=== PATIENT | male | born 1995 | race American Indian/Alaskan Native ===

== ENCOUNTER 2017-06-21 22:09 | Emergency (ER) | payer OTHER ==
[2017-06-21 22:23] VITALS: BP 99/68; PULSE 102; RESP 14; TEMP 99; O2SAT 96
[2017-06-21 22:37] VITALS: BMI 20.7
[2017-06-21] MEDS ORDERED: Amoxicillin-Clav 875-125 mg Tab PO STA (22:49)
[2017-06-21] MEDS ORDERED: TDAP Vaccine 0.5 mL Syr IM ONE (22:49)
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
== END 2017-06-21 23:41 | disposition home or self-care (01) ==
LOC: MERGE 22:09 → ED 22:09
DX: S61.451A Open bite of right hand, initial encounter (principal); S61.452A Open bite of left hand, initial encounter; Y04.1XXA Assault by human bite, initial encounter; Y92.9 Unspecified place or not applicable; M54.9 Dorsalgia, unspecified; Z23 Encounter for immunization

== ENCOUNTER 2017-08-09 13:54 | Emergency (ER) | payer BC, OTHER ==
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
[2017-08-09 14:43] LABS: BASO # 0.02 K/mm3 (0.0-2.0); BASO % 0.4 % (0.0-3.0); EOS % 0.2 % (1.5-5.0); GRAN # 1.41 (1.4-6.5); GRAN % 31.6 % (50.0-68.0); HEMOGLOBIN 14.8 g/dL (14.0-18.0); LYMPH # 2.6 (1.2-3.4); LYMPH % 57.7 % (22.0-35.0); MEAN CELL VOLUME 90.8 fl (80.0-105.0); MEAN CORPUSCULAR HEMOGLOBIN 31.8 pg (25.0-35.0); MEAN CORPUSCULAR HGB CONC 35.1 g/dl (31.0-37.0); MEAN PLATELET VOLUME 11.1 fl (7.0-11.0); MONO # 0.5 (0.1-0.6); MONO % 10.1 % (1.0-6.0); RBC 4.65 10^6/uL (3.5-6.1); RED CELL DISTRIBUTION WIDTH 12.5 % (11.5-14.5); WHITE BLOOD COUNT 4.5 10^3/ul (4.5-11.0)
[2017-08-09 14:59] LABS: ALB/GLOB RATIO 1.4 (1.1-1.8); ALBUMIN 4.8 g/dL (3.0-4.8); ALT/SGPT 41 U/L (7-56); AST/SGOT 47 U/L (17-59); BLOOD UREA NITROGEN 11 mg/dL (7-21); CALCIUM 9.6 mg/dL (8.4-10.5); GFR AFRICAN-AMERICAN > 60; GFR NON-AFRICAN AMERICAN > 60
[2017-08-09 15:08] LABS: TROPONIN I < 0.01 ng/mL
[2017-08-09 15:27] VITALS: O2SAT 100
[2017-08-09 15:44] LABS: CK-MB 1.9 ng/mL (0.0-3.6)
[2017-08-09 15:45] LABS: MAGNESIUM 1.9 mg/dL (1.7-2.2)
--- NOTE | 2017-08-09 15:57 | RAD ---
HISTORY: chest pain COMPARISON: No prior. TECHNIQUE: Chest PA and lateral FINDINGS: LUNGS: No active pulmonary disease. PLEURA: No significant pleural effusion identified. No pneumothorax apparent. CARDIOVASCULAR: Normal. OSSEOUS STRUCTURES: No significant abnormalities. VISUALIZED UPPER ABDOMEN: Normal. OTHER FINDINGS: None. IMPRESSION: No active disease.
[2017-08-09 16:12] VITALS: TEMP 98.3
[2017-08-09 16:52] VITALS: BP 120/68; PULSE 88; RESP 16
--- NOTE | 2017-08-10 10:07 | CARD ---
APPROVED REPORT EKG Measurement Heart [id number] NM [id number] <Conclusion> Normal sinus rhythm RSR' or QR pattern in V1 suggests right ventricular conduction delay Normal ECG
== END 2017-08-09 16:12 | disposition home or self-care (01) ==
LOC: ED 13:54
DX: R94.31 Abnormal electrocardiogram [ECG] [EKG] (principal); T14.8XXA Other injury of unspecified body region, initial encounter; X50.9XXA Other and unspecified overexertion or strenuous movements or postures, initial encounter
CPT/HCPCS: 71046; 80053; 82550; 82553; 83615; 83735; 84100; 84484; 85025; 85378; 93005; 96372; 99284; J1885

== ENCOUNTER 2018-02-19 19:58 | Emergency (ER) | payer BC ==
[2018-02-19 20:21] VITALS: RESP 18; TEMP 98.4; BMI 22.3
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
[2018-02-19 21:26] VITALS: BP 135/82; PULSE 75; O2SAT 100
--- NOTE | 2018-02-20 09:29 | RAD ---
PROCEDURE: Right Hand Radiographs. HISTORY: 3rd finger dislocation COMPARISON: None. FINDINGS: BONES: Normal. No fracture. JOINTS: Normal. No osteoarthritic changes. SOFT TISSUES: Normal. OTHER FINDINGS: None. IMPRESSION: Normal right hand radiographs.
== END 2018-02-19 21:23 | disposition home or self-care (01) ==
LOC: ED 19:58
DX: S63.252A Unspecified dislocation of right middle finger, initial encounter (principal); X50.0XXA Overexertion from strenuous movement or load, initial encounter; Y92.89 Other specified places as the place of occurrence of the external cause; Y99.0 Civilian activity done for income or pay

== ENCOUNTER 2018-06-23 19:53 | Emergency (ER) | payer BC ==
[2018-06-23 20:18] VITALS: TEMP 98.7
[2018-06-23] MEDS ORDERED: Sodium Chloride 0.9% 1,000 ML IV STA (20:29)
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
[2018-06-23 21:19] LABS: HEMOGLOBIN 14.5 g/dL (14.0-18.0); MEAN PLATELET VOLUME 10.5 fl (7.0-11.0); RBC 4.68 10^6/uL (3.5-6.1); RED CELL DISTRIBUTION WIDTH 12.7 % (11.5-14.5); WHITE BLOOD COUNT 5.1 10^3/uL (4.5-11.0)
[2018-06-23 21:29] LABS: ALB/GLOB RATIO 1.4 (1.1-1.8); ALBUMIN 4.4 g/dL (3.0-4.8); ALT/SGPT 31 U/L (7-56); AST/SGOT 30 U/L (17-59); BLOOD UREA NITROGEN 13 mg/dL (7-21); CALCIUM 9.3 mg/dL (8.4-10.5); GFR NON-AFRICAN AMERICAN > 60; LIPASE 163 U/L (23-300)
[2018-06-23 23:22] VITALS: BP 117/78; PULSE 68; RESP 18; O2SAT 100
== END 2018-06-23 22:55 | disposition home or self-care (01) ==
LOC: ED 19:53
DX: K52.9 Noninfective gastroenteritis and colitis, unspecified (principal)
CPT/HCPCS: 80053; 83690; 85027; 96361; 96374; 96375; 99284; J1885; J2405; J7030

== ENCOUNTER 2018-08-05 11:22 | Emergency (ER) | payer BC ==
[2018-08-05 11:55] VITALS: BMI 21.5
[2018-08-05 11:56] VITALS: RESP 18; TEMP 98.7
[2018-08-05] MEDS ORDERED: Lidocaine 2% Jelly (Uro-Jet) TOP ONE (12:15)
--- NOTE | 2018-08-05 13:25 | ED PDOC ---
Arrival/HPI - General Chief Complaint: GI Problem Historian: Patient - History of Present Illness Narrative History of Present Illness (Text): 08/05/18 12:12 22 year old male, whose past medical history includes hemorrhoid at age 14, who presents to the ED complaining of rectal pain related to a hemorrhoid that has been developing for approximately 1 month. 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 Patient states he has had a hemorrhoid in the past when he was 14 years old, noting it went away on its own. Patient states it is worse this time. Patient notes light pink bleeding, diarrhea and overall weakness. Patient denies any constipation, abdominal pain, nausea, vomiting, bloody stools, or any other complaints. Time/Duration: Other (Patient notes hemorrhoid has been developing for past month) Symptom Onset: Gradual Symptom Course: Unchanged Activities at Onset: Light Past Medical History - Provider Review Nursing Documentation Reviewed: Yes - Infectious Disease Hx of Infectious Diseases: None - Cardiac Hx Cardiac Disorders: No - Pulmonary Hx Respiratory Disorders: No Hx Asthma: No - Neurological HX Cerebrovascular Accident: Yes (age 12) - HEENT Hx HEENT Disorder: No - Renal Hx Renal Disorder: No - Endocrine/Metabolic Hx Endocrine Disorders: No - Hematological/Oncological Hx Blood Disorders: No - Integumentary Hx Dermatological Disorder: No - Musculoskeletal/Rheumatological Hx Musculoskeletal Disorders: No - Gastrointestinal Hx Gastrointestinal Disorders: No - Genitourinary/Gynecological Hx Genitourinary Disorders: No - Psychiatric Hx Psychophysiologic Disorder: No Hx Anxiety: Yes Hx Depression: Yes Hx Substance Use: Yes (marijuana) - Surgical History Other/Comment: hernia - Anesthesia Hx Anesthesia: Yes Hx Anesthesia Reactions: No Hx Malignant Hyperthermia: No Family/Social History - Physician Review Nursing Documentation Reviewed: Yes Family/Social History: No Known Family HX Smoking Status: Never Smoked Hx Alcohol Use: Yes Hx Substance Use: Yes (marijuana) Allergies/Home Meds Allergies/Adverse Reactions: Allergies melon Allergy (Verified 06/23/18 20:14) ITCHING Causes throat itching Review of Systems - Physician Review All systems were reviewed & negative as marked: Yes - Review of Systems Constitutional: Fatigue. absent: Normal Gastrointestinal: Diarrhea, Other (Pt notes light pink rectal bleeding). absent: Normal, Abdominal Pain, Constipation, Nausea, Vomiting, Hematochezia Physical Exam Vital Signs Reviewed: Yes Vital Signs Temp Pulse Resp BP Pulse Ox 08/05/18 11:56 98.7 F 71 18 121/78 98 Temperature: Afebrile Blood Pressure: Normal Pulse: Regular Respiratory Rate: Normal Appearance: Positive for: Well-Appearing, Non-Toxic, Comfortable Pain Distress: Mild Mental Status: Positive for: Alert and Oriented X 3 Medical Decision Making ED Course and Treatment: 08/05/18 12:12 Impression: 22 year old male presents to the ED complaining of rectal pain related to a hemorrhoid that has been developing for approximately 1 month. Differential Diagnoses Include But Are Not Limited To: --External Thrombosed Hemrrhoids Plan: -- Viscous Lidocaine Gel --Surgery Consult Prior visits: Patient was last seen here in the ED on 06/23/18 complaining of occassional nausea, vomiting, diarrhea, with occasional abdominal cramps. Pt was discharged home in good condition, directed to follow up with PMD, and prescribed Zofran ODT 4mg PO. Progress notes: 08/05/18 13:50 Surgery resident evaluated patient and states he would like to discuss with attending regarding plan of care for patient. He will follow up once he receives a response. 08/05/18 15:05 Spoke to surgery resident whom after discussion with Dr. Meek(general surgery) states patient may go home on Anusol, perform Sitz Baths & follow up with attending on outpatient basis. Updated plan communicated with patient who demonstrates acknowledgement. He is stable for discharge. - Medication Orders Current Medication Orders: Discontinued Medications Lidocaine HCl (Xylocaine 2% (Uro-Jet)) 20 ea TOP ONCE ONE Stop: 08/05/18 12:16 - Scribe Statement The provider has reviewed the documentation as recorded by the Scribe Geraldine Duffy All medical record entries made by the Scribe were at my direction and personally dictated by me. I have reviewed the chart and agree that the record accurately reflects my personal performance of the history, physical exam, medical decision making, and the department course for this patient. I have also personally directed, reviewed, and agree with the discharge instructions and disposition. Disposition/Present on Arrival - Present on Arrival Any Indicators Present on Arrival: No History of DVT/PE: No History of Uncontrolled Diabetes: No Urinary Catheter: No History of Decub. Ulcer: No History Surgical Site Infection Following: None - Disposition Have Diagnosis and Disposition been Completed?: Yes Diagnosis: External hemorrhoid Disposition Time: 15:06 Patient Plan: Discharge Patient Problems: Current Active Problems Problem Status Onset External hemorrhoid Acute Condition: STABLE Discharge Instructions (ExitCare): Hemorrhoids (DC) Print Language: THAI Additional Instructions: All medical record entries made by the Scribe were at my direction and personally dictated by me. I have reviewed the chart and agree that the record accurately reflects my personal performance of the history, physical exam, medical decision making, and the department course for this patient. I have also personally directed, reviewed, and agree with the discharge instructions and disposition. Please use Sitz Baths, epsom salts and local anesthetic cream for symptoms Please follow up with surgeon in 1-2 days Prescriptions: Hydrocortisone 2.5% (Rectal) [Anusol-HC] 30 applic SC BID #2 tube Phenylephrine HCl/Witch Tracey [Preparation H Cooling Gel] 51 gm TP Q6H #1 gel..gram. Referrals: Chilo Bhardwaj MD [Medical Doctor] - Follow up with primary Gris De Leon MD [Medical Doctor] - Follow up with primary [facility] [Outside] - Follow up with primary Forms: [facility] ([place]), WORK NOTE
--- NOTE | 2018-08-05 14:31 | CP.PCM.CON ---
History of Present Illness - History of Present Illness History of Present Illness: Surgery: Dr. Bhardwaj CC: Hemorrhoid HPI: 22M w. pmh of hemorrhoids presents to ED with worsening rectal pain x 1 month. Pt states that the pain is sharp. Pain is not made worse with BM. He denies any lisa bleeding, but states that he occasionally has light streaks on toilet paper when wiping. He denies constipation. He states that he has had intermittent diarrhea for the past month and has been occasionally feeling fatigued. PMH: Hemorrhoid at 14 y/o, resolved on own PSH: Left inguinal hernia repair (16 years old) Meds: none NKDA Social History: Patient admits to marijuana, denies, smoking tobacco, admits to social alcohol use Family history: non-contributory Review of Systems - Review of Systems All systems: reviewed and no additional remarkable complaints except (HPI) Past Patient History - Infectious Disease Hx of Infectious Diseases: None - Past Social History Smoking Status: Never Smoked - CARDIAC Hx Cardiac Disorders: No - PULMONARY Hx Respiratory Disorders: No Hx Asthma: No - NEUROLOGICAL HX Cerebrovascular Accident: Yes (age 12) - HEENT Hx HEENT Problems: No - RENAL Hx Chronic Kidney Disease: No - ENDOCRINE/METABOLIC Hx Endocrine Disorders: No - HEMATOLOGICAL/ONCOLOGICAL Hx Blood Disorders: No - INTEGUMENTARY Hx Dermatological Problems: No - MUSCULOSKELETAL/RHEUMATOLOGICAL Hx Musculoskeletal Disorders: No - GASTROINTESTINAL Hx Gastrointestinal Disorders: No - GENITOURINARY/GYNECOLOGICAL Hx Genitourinary Disorders: No - PSYCHIATRIC Hx Psychophysiologic Disorder: No Hx Anxiety: Yes Hx Depression: Yes Hx Substance Use: Yes (marijuana) - SURGICAL HISTORY Other/Comment: hernia - ANESTHESIA Hx Anesthesia: Yes Hx Anesthesia Reactions: No Hx Malignant Hyperthermia: No Meds Allergies/Adverse Reactions: Allergies Allergy/AdvReac Type Severity Reaction Status Date / Time melon Allergy ITCHING Verified 06/23/18 20:14 Physical Exam - Constitutional Appears: Non-toxic, No Acute Distress - Head Exam Head Exam: ATRAUMATIC, NORMOCEPHALIC - Eye Exam Eye Exam: EOMI - ENT Exam ENT Exam: Mucous Membranes Moist - Neck Exam Neck exam: Positive for: Full Rom - Respiratory Exam Respiratory Exam: NORMAL BREATHING PATTERN. absent: Accessory Muscle Use, Respiratory Distress - GI/Abdominal Exam GI & Abdominal Exam: Soft. absent: Distended, Firm, Guarding, Rebound, Rigid, Tenderness - Rectal Exam Additional comments: L side external hemorrhoid, tender to touch, no bleeding - Extremities Exam Extremities exam: Negative for: calf tenderness, pedal edema - Neurological Exam Neurological exam: Alert, Oriented x3 - Psychiatric Exam Psychiatric exam: Normal Affect, Normal Mood - Skin Skin Exam: Dry, Normal Color, Warm Results - Vital Signs Recent Vital Signs: Last Vital Signs Temp 98.7 F 08/05/18 11:56 Pulse 71 08/05/18 11:56 Resp 18 08/05/18 11:56 BP 121/78 08/05/18 11:56 Pulse Ox 98 08/05/18 11:56 Assessment & Plan - Assessment and Plan (Free Text) Assessment: 22M w. external hemorrhoid x 1 month -recommend ansuol cream / lidocaine 5% cream -pt can f/u out pt -d/w attending [place] PGY4
[2018-08-05 15:28] VITALS: BP 131/77; PULSE 72; O2SAT 99
== END 2018-08-05 16:01 | disposition home or self-care (01) ==
LOC: ED 11:22
DX: K64.4 Residual hemorrhoidal skin tags (principal)